=== PATIENT | female | born 1990 | race Caucasian/White ===

== ENCOUNTER 2019-11-23 09:18 | Emergency (ER) | payer BC, OTHER ==
[~2019-11-23] VITALS: Ht 154.9 cm; Wt 81.6 kg
[2019-11-23 09:21] VITALS: BP 132/84
--- NOTE | 2019-11-23 09:24 | NUR ---
URINE CUP HANDED TO PT FOR SAMPLE
--- NOTE | 2019-11-23 09:26 | NUR ---
Patient ambulated to bed 7. RN evaluating patient at bedside.
--- NOTE | 2019-11-23 09:30 | NUR ---
PT C/O SUDDEN ONSET OF SHARP LOWER BACK PAIN RADIATING TO BILATERAL THIGH WITH TINGLING SENSATION X LAST NIGHT. PT DENIES INJURY, FALL, OR HEAVY LIFTING; DENIES UTI SX. PT AMBULATES WITH A SLOW GUARDED GAIT, NO CVAT ON PALPATION. PT DENIES ANY FEVER, CP, SOB, OR COUGH AT THIS TIME; PATIENT STATES PAIN OF 7/10 AT THIS TIME; VSS; PATIENT POSITIONED FOR COMFORT; HOB ELEVATED; BEDRAILS UP X1; BED DOWN. ER MD MADE AWARE OF PT STATUS.
--- NOTE | 2019-11-23 09:31 | NUR ---
Dr. Hines is evaluating the patient at bedside.
[2019-11-23] MEDS ORDERED: KETOROLAC 60 MG/2 ML VIAL IM ONE (09:35)
[2019-11-23 10:13] VITALS: BP 125/78
--- NOTE | 2019-11-23 10:13 | NUR ---
Patient discharged with v/s stable. Written and verbal after care instructions given and explained. Patient alert, oriented and verbalized understanding of instructions. Ambulatory with steady gait. All questions addressed prior to discharge. ID band removed. Patient advised to follow up with PMD. Rx of Motrin, Tramadol and Robaxin given. Patient educated on indication of medication including possible reaction and side effects. Opportunity to ask questions provided and answered.
== END 2019-11-23 10:13 | disposition home or self-care (01) ==
LOC: MED 09:18
DX: M54.42 Lumbago with sciatica, left side (principal); R03.0 Elevated blood-pressure reading, without diagnosis of hypertension
CPT/HCPCS: 81002; 81025; 96372; 99283; J1885